=== PATIENT | female | born 1970 | race African-American/Black ===

== ENCOUNTER 2017-04-01 22:00 | Inpatient (IN) | payer MEDICARE, OTHER ==
--- NOTE | ~2017-04-01 | HP ---
Unit #: [id number] #: [id number] Patient: THOMAS JANG [id number] [place] [address] [id number] MR#: [id number] NAME: THOMAS JANG. ROOM: P132 Age: 46 Sex: F Admission Date: 04/02/2017 : 1970 Attending Physician: Natalie Matias M.D. Admitting Physician: Natalie Matias M.D. Primary Care Physician: Primary Care Physician No HISTORY AND PHYSICAL HISTORY OF PRESENT ILLNESS Thomas is a 46 year old admitted to [address] [place] [address] with depression and verbalizing wanting to hurt herself. PAST MEDICAL HISTORY 1. Long history of polysubstance abuse to include crack cocaine. 2. High blood pressure. 3. Obesity. PAST SURGICAL HISTORY Tubal ligation. ALLERGIES No known drug allergies. SOCIAL HISTORY Smokes one pack per day. Denies alcohol. Admits to a history of polysubstance abuse to include crack cocaine. FAMILY HISTORY Medically noncontributory. REVIEW OF SYSTEMS CONSTITUTIONAL: No fever or chills. HEENT: Denies any sore throat, ear pain or runny nose. CARDIOVASCULAR: Denies chest pain, irregular heart rhythm or palpitations. CHEST: Denies shortness of breath or cough. No hemoptysis. GASTROINTESTINAL: Denies nausea, vomiting, diarrhea or chronic constipation. ENDOCRINE: Denies history of increased thirst or urination. No recent significant weight loss or gain. GENITOURINARY: Denies dysuria, frequency, or hematuria. SKIN: Denies any rashes. HEMATOLOGIC: Denies history of increased bleeding or bruising. MUSCULOSKELETAL: Denies any hot, swollen joints. No generalized muscle pain. NEUROLOGIC: Denies problems with vision or speech. No frequent, severe headaches. No numbness, tingling or weakness in any extremities. Denies loss of bladder or bowel control. CURRENT MEDICATIONS 1. Seroquel 300 mg q.h.s. Unit #: [id number] #: [id number] Patient: THOMAS JANG 2. Zestril 20 mg q day 3. Lopressor 50 mg b.i.d. 4. Catapres 0.2 mg b.i.d. 5. Vistaril p.r.n. 6. Desyrel p.r.n. 7. Milk of Magnesia p.r.n. 8. Maalox p.r.n. 9. Tylenol p.r.n. PHYSICAL EXAMINATION GENERAL: Alert, obese, in no apparent distress. VITAL SIGNS: Blood pressure 150/92, heart rate 80, respirations 16, temperature 98.6. WEIGHT: 140. HEIGHT: 5 foot 0 inches. SKIN: Warm and dry without rash or lesion. HEENT: Normocephalic. TMs not viewed. Oral and nasal passages clear. Conjunctivae clear. Pupils equal, round and reactive to light and accommodation. Extraocular movements intact. NECK: Supple without lymphadenopathy or thyromegaly. HEART: Regular rate and rhythm without murmur. LUNGS: Clear. ABDOMEN: Soft, nontender. : Not done. EXTREMITIES: No evidence of cyanosis, clubbing or edema. Moves all extremities without focal deficit. NEUROLOGICAL: Grossly within normal limits. Cranial Nerves: II: Visual sahni are intact. III, IV AND : Extraocular movements are intact. Pupils are equal, round and reactive to light. V: Facial sensation is grossly normal. VII: Facial movements and expression are normal. VIII: Auditory acuity grossly intact. IX, X: Uvula is midline. Phonation is normal. XI: Patient shrugs shoulders and turns head normally. XII: Tongue protrudes in the midline. Sensory and Motor Function: Sensory and motor sensation is grossly normal. Motor: moves all extremities well. Coordination: Gait is normal. Deep Tendon Reflexes: Intact. IMPRESSION Psychiatric admission. RECOMMENDATIONS PSYCHIATRIC: Per psychiatrist. MEDICAL: I see no contraindications to participating in facility's activities. MEDICAL PROGNOSIS Good. MEDICAL CONDITION Stable. Dictated by... Unit #: [id number] #: [id number] Patient: THOMAS JANG P.A.-Kayley. for Sandra Orozco/irene TD: 04/02/2017 21:58 JOB #: [id number] HISTORY AND PHYSICAL Page 1 of 1 X Brielle Chao X HISTORY AND PHYSICAL
--- NOTE | ~2017-04-01 | PN ---
Unit #: [id number] #: [id number] Patient: THOMAS JANG [id number] [facility] [address] [place] [address] [id number] I MR#: [id number] NAME: THOMAS JANG. ROOM: P132 Age: 46 Sex: F Admission Date: 04/02/2017 : 1970 Attending Physician: Natalie Matias M.D. Admitting Physician: Natalie Matias M.D. Primary Care Physician: Primary Care Physician Amrita IRBY PROGRESS NOTES DATE 04/03/2017 DISCUSSION Ms. Jang is a 46-year-old female who was seen today and chart was reviewed and case was discussed with the staff. She has been anxious, withdrawn and rather seclusive to herself. Meanwhile, she has been cooperative with treatment recommendations and has been taking medications and tolerating them fairly well with no reported side effects. MENTAL STATUS EXAMINATION Middle-aged female who was casually dressed with fair personal hygiene and appears to be in no acute distress or discomfort. She was awake, alert with impaired attention and concentration. Her mood was anxious with congruent affect. She denies any suicidal or homicidal ideation. Her insight and judgement remains slightly impaired. TREATMENT PLAN 1. Will continue on current medications and treatment protocol and will monitor her response to medications and make further adjustments as needed. 2. Will continue to follow up. Dictated by... Sandra Villanueva/bro TD: 04/03/2017 19:28 JOB #: [id number] Unit #: [id number] #: [id number] Patient: THOMAS JANG PEADEANN PROGRESS NOTES Page 1 of 1 X Natalie Matias MD PROGRESS NOTE
--- NOTE | ~2017-04-01 | PN ---
Unit #: [id number] #: [id number] Patient: THOMAS JANG [id number] [facility] [address] [place] [address] [id number] I MR#: [id number] NAME: THOMAS JANG ROOM: P132 Age: 46 Sex: F Admission Date: 04/02/2017 : 1970 Attending Physician: Natalie Matias M.D. Admitting Physician: Natalie Matias M.D. Primary Care Physician: Primary Care Physician Amrita IRBY PROGRESS NOTES DATE OF SERVICE: 04/04/2017 SUBJECTIVE Ms. Jang is a 46-year-old female, who was seen today and chart was reviewed and the case was discussed with the staff. She reports some persistent anxiety and depression, muscle aches and pains. Meanwhile, she has been taking the medications and tolerating them fairly well with no reported side effects. MENTAL STATUS EXAMINATION Middle-aged female, who was casually dressed with fair personal hygiene, appears to be in slight distress and discomfort. She was awake and alert with intact orientation. Her mood was anxious with a congruent affect. Her speech was slow and tangential. Her thought processes were disorganized with some looseness of associations and flight of ideas. Her insight and judgment remain significantly impaired. TREATMENT PLAN 1. We will continue her on her current medications and treatment protocol. We will monitor her response to the medications and make further adjustments as needed. 2. We will continue to follow up. Dictated by... Sandra Villanueva/gianluca TD: 04/04/2017 15:40 JOB #: [id number] [facility] PROGRESS NOTES Page 1 of 1 X Natalie Matias MD PROGRESS NOTE
--- NOTE | ~2017-04-01 | PN ---
Unit #: [id number] #: [id number] Patient: THOMAS JANG [id number] [facility] [address] [place] [address] [id number] I MR#: [id number] NAME: THOMAS JANG ROOM: P132 Age: 46 Sex: F Admission Date: 04/02/2017 : 1970 Attending Physician: Natalie Matias M.D. Admitting Physician: Natalie Matias M.D. Primary Care Physician: Primary Care Physician Amrita GARCIA NOTES DATE April 08, 2017 DISCUSSION Ms. Jang is a 46-year-old female, who was seen today and chart was reviewed and the case was discussed with the staff. She appears to be doing somewhat better but still has some irritable mood and hypomania-like symptoms. She has not shown any agitation or aggression and has been polite and pleasant and redirectable. She has been cooperative with the treatment recommendations and she has been taking the medications and tolerating them fairly well with no reported side effects. MENTAL STATUS EXAMINATION Middle-aged female, who was casually dressed with fair personal hygiene and appears to be in no acute distress or discomfort. She was awake and alert on interaction with intact orientation. Her mood is elated with expressive affect. Her speech is slow and tangential. She denies any suicidal or homicidal ideations, and also denies any auditory or visual hallucinations. Her insight and judgment remain fairly impaired. TREATMENT PLAN 1. We will continue her on her current medications and treatment protocol, and will monitor her response to the medications, and make further adjustments as needed. 2. We will continue to followup. Dictated by... Sandra Villanueva/sylvain TD: 04/08/2017 10:52 JOB #: [id number] Unit #: [id number] #: [id number] Patient: THOMAS JNAG SUREKHA PROGRESS NOTES Page 1 of 1 X Natalie Matias MD PROGRESS NOTE
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
--- NOTE | ~2017-04-01 | PN ---
Unit #: [id number] #: [id number] Patient: THOMAS JANG [id number] [facility] [address] [place] [address] [id number] I MR#: [id number] NAME: THOMAS JANG. ROOM: P132 Age: 46 Sex: F Admission Date: 04/02/2017 : 1970 Attending Physician: Natalie Matias M.D. Admitting Physician: Natalie Matias M.D. Primary Care Physician: Primary Care Physician Amrita IRBY PROGRESS NOTES DATE 04/06/2017 DISCUSSION Ms. Jang is a 46-year-old female who was seen today and chart was reviewed and case was discussed with the staff. She was anxious, withdrawn and rather seclusive to herself. Meanwhile, she has been cooperative with treatment recommendations and has been taking the medications and tolerating them fairly well with no reported side effects. MENTAL STATUS EXAMINATION Young female who was casually dressed with fair personal hygiene and appears to be in no acute distress or discomfort. She was awake and alert with impaired attention and concentration. Her mood was anxious with congruent affect. She denies any suicidal or homicidal ideations. Her insight and judgement remains slightly impaired. TREATMENT PLAN 1. Will continue on current medications and treatment protocol. Will monitor her response for medications and make further adjustments as needed. 2. Will continue to follow up. Dictated by... Sandra Villanueva/bro TD: 04/06/2017 21:02 JOB #: [id number] Unit #: [id number] #: [id number] Patient: THOMAS JANG PEADEANN PROGRESS NOTES Page 1 of 1 X Natalie Matias MD X PROGRESS NOTE
--- NOTE | ~2017-04-01 | PN ---
Unit #: [id number] #: [id number] Patient: THOMAS JANG [id number] [facility] [address] [place] [address] [id number] I MR#: [id number] NAME: THOMAS JANG. ROOM: P132 Age: 46 Sex: F Admission Date: 04/02/2017 : 1970 Attending Physician: Natalie Matias M.D. Admitting Physician: Natalie Matias M.D. Primary Care Physician: Primary Care Physician Amrita IRBY PROGRESS NOTES DATE 04/05/2017 DISCUSSION Ms. Jang is a 46-year-old female with mood disorder who was seen today and chart was reviewed and case was discussed with the staff. She has been anxious, withdrawn, depressed and restlessness and seclusive to herself. Meanwhile, she has been cooperative with treatment recommendations. She has been taking the medications and tolerating them fairly well with no reported side effects. MENTAL STATUS EXAMINATION Middle-aged female who was casually dressed with fair personal hygiene, appears to be in no acute distress or discomfort. She was awake and alert with impaired attention and concentration. Her mood was anxious and depressed with congruent affect. She reports having suicidal ideation but denied any homicidal ideations. Her insight and judgement remains slightly impaired. TREATMENT PLAN 1. We will continue her on her current medications and treatment protocol. We will monitor her response to the medication and make further adjustments as needed. 2. We will continue to follow up. Dictated by... Sandra Villanueva/irene TD: 04/06/2017 03:16 JOB #: [id number] Unit #: [id number] #: [id number] Patient: THOMAS JANG PROGRESS NOTES Page 1 of 1 X Natalie Matias MD PROGRESS NOTE
--- NOTE | ~2017-04-01 | DS ---
Unit #: [id number] #: [id number] Patient: THOMAS JANG [id number] [facility] [address] [place] [address] [id number] I MR#: [id number] NAME: THOMAS JANG ROOM: P132 Age: 46 Sex: F Admission Date: 04/02/2017 : 1970 Discharge Date: 04/09/2017 Attending Physician: Natalie Matias M.D. Primary Care Physician: Primary Care Physician No DISCHARGE SUMMARY IDENTIFICATION DATA Ms. Jang is a 46-year-old female who is a resident of [place], [place], and is known to us from previous encounters, and was self-referred to the hospital. DISCHARGE DIAGNOSES PSYCHIATRIC: Bipolar disorder, most recent episode, depressed, recurrent, moderate, without psychotic features. Cocaine dependence, moderate. Cannabis abuse, moderate. MEDICAL: Hypertension. STRESSORS: Mild psychosocial stressors. HISTORY OF PRESENT ILLNESS Same as in initial psychiatric evaluation. PAST PSYCHIATRIC HISTORY Same as in initial psychiatric evaluation. PAST MEDICAL HISTORY Same as in initial psychiatric evaluation. HOSPITAL COURSE The patient was admitted to the adult psychiatric unit at [facility] and was oriented to the hospital environment. Routine p.r.n. medications were initiated, and she was started back on her home medications and was seen to be exhibiting some significant mood instability with crying spells and being emotionally fragile, and Seroquel was started as a mood stabilizer which was gradually titrated up to 300 mg at bedtime, and she was closely monitored. She was taking the medications regularly and was tolerating them fairly well and was able to show a decent therapeutic response with improvement in depression and anxiety and was denying any suicidal ideations, intent, or plan, and as such it was decided that she will be stepped down to the intensive outpatient program level of care. We will continue further ongoing outpatient psychiatric treatment. DISCHARGE MEDICATION Seroquel 300 mg at bedtime for bipolar. CONDITION AT DISCHARGE Stable. PROGNOSIS Unit #: [id number] #: [id number] Patient: THOMAS JANG Fair. Dictated by... Sandra Villanueva/corby TD: 04/09/2017 11:02 JOB #: [id number] DISCHARGE SUMMARY Page 1 of 1 X Natalie Matias MD DISCHARGE SUMMARY
--- NOTE | ~2017-04-01 | PN ---
Unit #: [id number] #: [id number] Patient: THOMAS JANG [id number] [facility] [address] [place] [address] [id number] I MR#: [id number] NAME: THOMAS JANG ROOM: P132 Age: 46 Sex: F Admission Date: 04/02/2017 : 1970 Attending Physician: Natalie Matias M.D. Admitting Physician: Natalie Matias M.D. Primary Care Physician: Primary Care Physician Amrita IRBY PROGRESS NOTES DATE OF SERVICE: 04/07/2017 SUBJECTIVE Ms. Jang is a 46-year-old female, who was seen today and chart was reviewed and case was discussed with the staff. She has been anxious, withdrawn, and rather seclusive to herself. Meanwhile, she has been cooperative with treatment recommendation and has been taking medications and tolerating them fairly well with no reported side effects. MENTAL STATUS EXAMINATION Middle-aged female, who was casually dressed with fair personal hygiene, appears to be in no acute distress or discomfort. She was awake and alert on interaction with intact orientation. Her mood was anxious with a congruent affect. Her speech was slow and goal directed. The patient denies any suicidal or homicidal ideations. Her insight and judgment remain slightly impaired. TREATMENT PLAN 1. We will continue her on her current medications and treatment protocol. We will monitor her response to medications and make further adjustments as needed. 2. We will continue to follow up. Dictated by... Sandra Villanueva/gianluca TD: 04/07/2017 08:03 JOB #: [id number] [facility] PROGRESS NOTES Page 1 of 1 X Natalie Matias MD X PROGRESS NOTE
[2017-04-02 09:54] LABS: THYROID STIMULATING HORMONE 1.27 uIU/ml (0.34-5.60)
[2017-04-02 10:01] LABS: FREE THYROXIN (T4) 0.97 ng/dL (0.58-1.64)
[2017-04-02 10:07] LABS: ALBUMIN SERUM 3.8 g/dL (3.5-5.0); BILIRUBIN,TOTAL 0.5 mg/dL (0.2-2.0); BUN/CREATININE RATIO 8.75; CALCIUM SERUM 9.2 mg/dL (8.4-10.2); CREATININE SERUM 0.8 mg/dL (0.6-1.4); GLOM FILT RATE Estimated 101.1 mL/min (>60); POTASSIUM 4.1 mmol/L (3.5-5.1); PROTEIN TOTAL SERUM 6.7 g/dL (6.0-8.3)
== END 2017-04-09 09:15 | disposition home or self-care (01) | DRG 885 ==
LOC: P1S 04-02 01:38
PROVIDERS: Psychiatry & Neurology Psychiatry
DX: F31.32 Bipolar disorder, current episode depressed, moderate (principal); F14.20 Cocaine dependence, uncomplicated; I10 Essential (primary) hypertension; F12.20 Cannabis dependence, uncomplicated; Z59.0 Homelessness; F17.210 Nicotine dependence, cigarettes, uncomplicated; Z98.51 Tubal ligation status
CPT/HCPCS: 80053; 84439; 84443